=== PATIENT | male | born 2000 ===

== ENCOUNTER 2018-08-06 15:48 | Emergency (ER) | payer SELFPAY ==
[2018-08-06] MEDS ORDERED: ONDANSETRON ODT 4 MG TAB.RAPDIS. PO ONE (17:15)
== END 2018-08-06 17:20 | disposition left against medical advice (07) ==
LOC: ER 15:48
DX: R11.2 Nausea with vomiting, unspecified (principal); R19.7 Diarrhea, unspecified; Z53.21 Procedure and treatment not carried out due to patient leaving prior to being seen by health care provider